=== PATIENT | female | born 1990 | race Caucasian/White ===

== ENCOUNTER 2020-01-13 07:35 | Inpatient (IN) | payer OTHER ==
[2020-01-13] MEDS: ELECTROLYTE-148 SOLN 1,000 ML IV SCH ×2 (07:40→10:37)
[2020-01-13 09:01] VITALS: BMI 39.4
[2020-01-13 09:06] LABS: BASO % 0.6 % (0-2.0); HEMATOCRIT 36.7 % (32.4-45.2); HEMOGLOBIN 12.8 GM/dL (10.7-15.3); LYMPH % 7.1 % (8-40); MCH 32.4 pg (25.7-33.7); MCHC 34.8 g/dl (32.0-36.0); MEAN CELL VOLUME 93.1 fl (80-96); MEAN PLT VOLUME 11.9 fl (7.5-11.1); MONO % 3.7 % (3.8-10.2); NEUT % 88.6 % (42.8-82.8); PLATELET COUNT 161 K/MM3 (134-434); RBC 3.94 M/mm3 (3.60-5.2); RDW 13.3 % (11.6-15.6); WHITE BLOOD COUNT 16.1 K/mm3 (4.0-10.0)
[2020-01-13 09:14] LABS: INR 0.94 (0.83-1.09); PROTHROMBIN TIME (PATIENT) 11.1 SEC (9.7-13.0)
[2020-01-13 09:17] LABS: ACTIVATED PTT 31.5 SECONDS (25.2-36.5)
[2020-01-13] MEDS ORDERED: OXYTOCIN 30 UNITS in 0.9% NS 30 UNIT/500 ML INFUS.BAG IVPB ONE (09:20)
[2020-01-13] MEDS ORDERED: FENTANYL/BUPIVACAINE/NS/PF - PCEA - 50 ML DISP.SYRIN EP ONE ×2 (09:20→13:57)
--- NOTE | 2020-01-13 09:20 | HP ---
Past Medical History - Primary Care Physician PCP:: Lb Byrnes - Admission Chief Complaint: 40,6 weeks, labor History of Present Illness: 29 yo f 40,6 weeks in labor , cx 5 cm 100 vx -2 mi , bulging, fhr cat 1, irregular contraction History Source: Patient Limitations to Obtaining History: No Limitations - Past Medical History ...: 2 ...Para: 0 ...Term: 0 ...: 0 ...Spon : 0 ...Induced : 1 ...Living Children: 0 ...Multiple Gestation: 0 ...LMP: 04/08/19 ... Weeks Gestation by Dates: 40.0 ...EDC by Dates: 01/13/20 ...EDC by Sono: 01/07/20 - Past Surgical History Past Surgical History: Yes: None Hx Myomectomy: No Hx Transabdominal Cerclage: No - Smoking History Smoking history: Never smoked Have you smoked in the past 12 months: No - Alcohol/Substance Use Hx Alcohol Use: No History of Substance Use: reports: None - Social History Usual Living Arrangement: Yes: With Spouse ADL: Independent History of Recent Travel: No Home Medications - Allergies Allergies/Adverse Reactions: Allergies Allergy/AdvReac Type Severity Reaction Status Date / Time No Known Allergies Allergy Verified 01/13/20 09:02 - Home Medications Home Medications: Ambulatory Orders Vitamins (Sjr) - 1 tab PO DAILY 01/05/20 Review of Systems - Review of Systems Constitutional: reports: No Symptoms Eyes: reports: No Symptoms HENT: reports: No Symptoms Neck: reports: No Symptoms Cardiovascular: reports: No Symptoms Respiratory: reports: No Symptoms Gastrointestinal: reports: No Symptoms Genitourinary: reports: No Symptoms Breasts: reports: No Symptoms Reported Musculoskeletal: reports: No Symptoms Integumentary: reports: No Symptoms Neurological: reports: No Symptoms Endocrine: reports: No Symptoms Hematology/Lymphatic: reports: No Symptoms Psychiatric: reports: No Symptoms Physical Exam - Maternity Vital Signs: Vital Signs Temperature 98.4 F 01/13/20 09:00 Pulse Rate 74 01/13/20 09:00 Respiratory Rate 18 01/13/20 09:00 Blood Pressure 117/60 01/13/20 09:00 O2 Sat by Pulse Oximetry (%) - Abdominal Exam/OB Fundal Height: 40 Number of Fetuses: Single Presentation: Vertex Contractions: Yes Intensity: Mod/Strong Monitor Mode: External Heart Rate Location: [facility] Category: I Accelerations: Non-Uniform Decelerations: None - Vaginal Exam/OB Vaginal Bleeding: No Speculum Exam: No Dilatation (cm): 5 Effacement (%): 100 Amniotic Membrane Status: Bulging Presentation: Vertex/Position Station: -1 - Physical Exam Musculoskeletal: Yes: WNL Extremities: Yes: WNL Edema: LLE: Trace, RLE: Trace Deep Tendon Reflex Grade: Normal +2 ...Motor Strength: WNL Psychiatric: Yes: WNL - Labs Lab Results: CBC, BMP 01/13/20 08:48 Hemorrhage Risk Assessment - Risk Factors Medium Risk Factors: Yes: None High Risk Factors: Yes: None Risk Score: 1 Risk Level: Medium Risk Problem List - Problems (1) Post-dates Code(s): O48.0 - POST-TERM Qualifiers: Post-term type: 40-42 weeks gestation Qualified Code(s): O48.0 - Post-term (2) Labor established Code(s): CDL7349 - (3) Obesity complicating childbirth Code(s): O99.214 - OBESITY COMPLICATING CHILDBIRTH Assessment/Plan admit fhm irregular contraction, advised pitocin, risks discussed pain management
--- NOTE | 2020-01-13 09:21 | PN ---
Progress Note (short form) - Note Progress Note: cx 5 cm 80 vx -2 mi, arom, light mec stained AF , fhr cat 1, irregular contraction
[2020-01-13] MEDS ORDERED: CITRIC ACID/SODIUM CITRATE 30 ML UNIT-DOSE CUP PO ONE (09:26)
[2020-01-13] MEDS ORDERED: OXYTOCIN 30 UNITS in 0.9% NS 30 UNIT/500 ML INFUS.BAG IVPB SCH (09:30)
[2020-01-13 09:37] LABS: BLOOD UREA NITROGEN 7.2 mg/dL (7-18); CALCIUM 9.2 mg/dL (8.5-10.1); CREATININE 0.6 mg/dL (0.55-1.3); POTASSIUM 3.8 mmol/L (3.5-5.1)
[2020-01-13] MEDS ORDERED: NALOXONE HCL 0.4 MG/ML VIAL IVPUSH PRN (09:39)
[2020-01-13] MEDS ORDERED: BUPIVACAINE HCL/PF 0.25% (2.5MG/ML) 10 ML VIAL ONE (09:41)
[2020-01-13] MEDS: FENTANYL/BUPIVACAINE/NS/PF - PCEA - 50 ML DISP.SYRIN EP SCH (10:00)
[2020-01-13] MEDS ORDERED: LIDOCAINE HCL 1% PRESERVATIVE FREE - 30ML VIAL ONE (14:59)
[2020-01-13] MEDS ORDERED: OXYTOCIN 20 UNITS in 0.9% NS 20 UNIT/1,000 ML INFUS.BAG IV ONE ×2 (14:59→16:45)
[2020-01-13] MEDS: OXYTOCIN 20 UNITS in 0.9% NS 20 UNIT/1,000 ML INFUS.BAG IV SCH ×2 (15:34→16:58)
[2020-01-13] MEDS ORDERED: BENZOCAINE 28 GM HEMORRHOIDAL OINTMENT TP PRN (15:44)
[2020-01-13] MEDS ORDERED: WITCH HAZEL 50% (TUCKS) 40 PAD/JAR PAD TP PRN (15:44)
[2020-01-13] MEDS ORDERED: METHYLERGONOVINE MALEATE 0.2 MG/1 ML AMP IM PRN (15:44)
[2020-01-13] MEDS ORDERED: BISACODYL 10 MG SUPP.RECT RC PRN (15:44)
[2020-01-13] MEDS ORDERED: BENZOCAINE 20% 57 GM BOTTLE TP PRN (15:44)
[2020-01-13] MEDS ORDERED: ELECTROLYTE-148 SOLN 1,000 ML IV SCH (15:45)
[2020-01-13] MEDS ORDERED: METHYLERGONOVINE MALEATE 0.2 MG/1 ML AMP IM ONE (15:46)
--- NOTE | 2020-01-13 15:50 | PN ---
Delivery - Delivery Vaginal Delivery: Spontaneous (cx full , RML episiotomy done, haed delivered , ant, and post, shoulder with no difficulty , live baby bot 9/9, placenta complete, RML episiotomy in 3 layerd with 2 chromic , rectal exam negative , ebl 300cc , baby bonded with mom, no complication) Type of Anesthesia: Local, Epidural Episiotomy/Laceration: Right Mediolateral (cx full , head on pernium, head delivered , nasopharynx suctioned , ant. and post. w) EBL (cc): 300 Delivery, Single - Rudyard Feeding Plan Initial Plan: Elected not to breastfeed exclusively throughout hospitalization
[2020-01-13 16:24] LABS: CORD BASE EXCESS -4.9 mmol/L (0-2); CORD HCO3 21.1 mmHg (20-29); CORD PCO2 42.6 mmHg (30-78); CORD pH 7.313 (7.14-7.44)
[2020-01-13] MEDS ORDERED: ACETAMINOPHEN 325 MG TABLET (FP) ONE (16:51)
[2020-01-13] MEDS ORDERED: IBUPROFEN 600 MG TABLET (FP) PO ONE (16:51)
[2020-01-13] MEDS: ACETAMINOPHEN 325 MG TABLET (FP) PO PRN (16:56)
[2020-01-13] MEDS: IBUPROFEN 600 MG TABLET (FP) PO PRN (16:57)
[2020-01-13] MEDS: FERROUS SO4 325 MG TABLET (FP) PO SCH (18:13)
[2020-01-13] MEDS: FAMOTIDINE 20 MG TABLET PO SCH (18:44)
[2020-01-14] MEDS: ACETAMINOPHEN 325 MG TABLET (FP) PO PRN ×3 (03:26→15:52)
[2020-01-14] MEDS: IBUPROFEN 600 MG TABLET (FP) PO PRN ×3 (03:26→15:52)
[2020-01-14 08:40] LABS: BASO % 0.3 % (0-2.0); EOS % 0.1 % (0-4.5); HEMATOCRIT 30.8 % (32.4-45.2); HEMOGLOBIN 10.4 GM/dL (10.7-15.3); LYMPH % 9.7 % (8-40); MCH 31.5 pg (25.7-33.7); MCHC 33.9 g/dl (32.0-36.0); MEAN PLT VOLUME 11.5 fl (7.5-11.1); MONO % 6.5 % (3.8-10.2); NEUT % 83.4 % (42.8-82.8); PLATELET COUNT 154 K/MM3 (134-434); RBC 3.31 M/mm3 (3.60-5.2); RDW 13.6 % (11.6-15.6); WHITE BLOOD COUNT 14.1 K/mm3 (4.0-10.0)
[2020-01-14] MEDS: FERROUS SO4 325 MG TABLET (FP) PO SCH (09:00)
[2020-01-14] MEDS: FAMOTIDINE 20 MG TABLET PO SCH (09:08)
[2020-01-14] MEDS ORDERED: PRENATAL VITAMINS W/ FOLIC ACID TABLET (FP) PO SCH (10:00)
[2020-01-14] MEDS: FENTANYL/BUPIVACAINE/NS/PF - PCEA - 50 ML DISP.SYRIN EP SCH (12:26)
[2020-01-14 16:00] VITALS: BP 100/68; PULSE 77; TEMP 97.9
[2020-01-14] MEDS ORDERED: SENNOSIDES/DOCUSATE COMBO (SENNA PLUS) TABLET (UD) PO PRN (22:00)
--- NOTE | 2020-01-15 07:57 | DS ---
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: Vital Signs Temperature 97.9 F 01/14/20 14:00 Pulse Rate 77 01/14/20 14:00 Respiratory Rate 18 01/14/20 14:00 Blood Pressure 100/68 01/14/20 14:00 O2 Sat by Pulse Oximetry (%) 98 01/13/20 22:00 Constitutional: Yes: Well Nourished, No Distress, Calm Eyes: Yes: WNL, Conjunctiva Clear, EOM Intact HENT: Yes: WNL, Atraumatic, Normocephalic Neck: Yes: WNL, Supple, Trachea Midline Cardiovascular: Yes: WNL, Regular Rate and Rhythm Respiratory: Yes: WNL, Regular, CTA Bilaterally Gastrointestinal: Yes: WNL ...Rectal Exam: Yes: WNL Renal/: Yes: WNL ....Post : Yes: Uterus firm, Uterus non-tender, Slight lochia rubra Breast(s): Yes: WNL Musculoskeletal: Yes: WNL Extremities: Yes: WNL Edema: No Integumentary: Yes: WNL Neurological: Yes: WNL, Alert, Oriented ...Motor Strength: WNL Psychiatric: Yes: WNL, Alert, Oriented Labs: CBC, BMP 01/14/20 08:15 01/13/20 08:48 Delivery - Delivery Vaginal Delivery: Spontaneous (cx full , RML episiotomy done, haed delivered , ant, and post, shoulder with no difficulty , live baby bot 9/9, placenta complete, RML episiotomy in 3 layerd with 2 chromic , rectal exam negative , ebl 300cc , baby bonded with mom, no complication) Type of Anesthesia: Local, Epidural Episiotomy/Laceration: Right Mediolateral EBL (cc): 300 Delivery, Single - Stages of Labor Date 1st Stage Initiatied: 01/13/20 Time 1st Stage Initiated: 03:00 Date 2nd Stage Initiated: 01/13/20 Time 2nd Stage Initiated: 15:00 Date of Delivery: 01/13/20 Time of Delivery: 15:20 Time Placenta Delivered: 15:34 Placenta: Yes: Spontaneous - 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 Present: No Infant Gender: Male Weight: 6 lb 14 oz Position: Left, OA Total Hours ROM (Hrs/Mins): 6hrs 44min - 1 Minute Total Score: 9 5 Minutes Total Score: 9 - Feeding Plan Initial Plan: Elected not to breastfeed exclusively throughout hospitalization Discharge Summary Reason For Visit: LABOR Procedures: Principal: Hospital Course: no complication Plan of Treatment: follow up office 4 weeks Condition: Good - Instructions Diet, Activity, Other Instructions: regular diet, no intercourse , follow up office 4 weeks, if fever, pain, heavy vaginal bleeding call md Referrals: Lb Byrnes MD [Staff Physician] - Disposition: HOME - Home Medications Comprehensive Discharge Medication List: Ambulatory Orders Vitamins (Sjr) - 1 tab PO DAILY 01/05/20 Ibuprofen [Motrin -] 600 mg PO QID #28 tablet 01/14/20 Ibuprofen [Motrin -] 600 mg PO QID #28 tablet 01/14/20 Ibuprofen [Motrin -] 600 mg PO QID #28 tablet 01/14/20
== END 2020-01-14 17:50 | disposition home or self-care (01) | DRG 560 ==
LOC: JLDR 07:35 → J3W 18:00
PROVIDERS: ADMIT Obstetrics & Gynecology; ATTEND Obstetrics & Gynecology
PROC: 10E0XZZ Delivery of Products of Conception, External Approach (ICD-10-PCS; principal; 2020-01-13)
PROC: 0W8NXZZ Division of Female Perineum, External Approach (ICD-10-PCS; 2020-01-13)
DX: O48.0 Post-term pregnancy (principal); O99.214 Obesity complicating childbirth; E66.9 Obesity, unspecified; O77.0 Labor and delivery complicated by meconium in amniotic fluid; Z3A.40 40 weeks gestation of pregnancy; Z37.0 Single live birth
CPT/HCPCS: 36415; 36600; 59409; 80048; 82803; 85025; 85610; 85730; 86780; 86850; 86900; 86901; U0003